=== PATIENT | female | born 1995 | race American Indian/Alaskan Native ===

== ENCOUNTER 2016-11-07 09:41 | Emergency (ER) | payer OTHER ==
[2016-11-07 09:59] VITALS: BP 117/55; PULSE 69; RESP 18; TEMP 98.3; O2SAT 100
--- NOTE | 2016-11-07 10:22 | ED PDOC ---
HPI: Psych/Substance Abuse Time Seen by Provider: 11/07/16 09:56 Chief Complaint (Nursing): Psychiatric Evaluation Chief Complaint (Provider): Psychiatric Evaluation History Per: Patient, Family (Mother) History/Exam Limitations: no limitations Onset/Duration Of Symptoms: Days (x 1) Current Symptoms Are (Timing): Still Present Associated Symptoms: Depression, Suicidal Thoughts, Suicidal Plan Additional Complaint(s): Violeta is a 21 y/o female who was brought to the ED by her mother for psychiatric evaluation. Patient told her mother she felt like killing herself, and has plan of cutting wrists. History of psychiatric medical concerns when she lived in [place] 5 years ago, but currently not on any medications and hasnt seen a psychiatrist here. Denies drug use and alcohol use. PMD: Tuan Suarez Past Medical History Reviewed: Historical Data, Nursing Documentation, Vital Signs Vital Signs: Last Vital Signs Temp 98.3 F 11/07/16 09:54 Pulse 69 11/07/16 09:54 Resp 18 11/07/16 09:54 BP 117/55 L 11/07/16 09:54 Pulse Ox 100 11/07/16 09:54 - Medical History PMH: Anxiety, Bipolar Disorder, Depression, Migraine - Surgical History Surgical History: No Surg Hx - Family History Family History: States: Unknown Family Hx - Social History Current smoker - smoking cessation education provided: No Alcohol: Social Drugs: Cannabis - Immunization History Hx Tetanus Toxoid Vaccination: No Hx Influenza Vaccination: No Hx Pneumococcal Vaccination: No - Home Medications Home Medications: Ambulatory Orders Medication Instructions Recorded No Known Home Med 06/19/15 - Allergies Allergies/Adverse Reactions: Allergies Allergy/AdvReac Type Severity Reaction Status Date / Time No Known Allergies Allergy Verified 11/07/16 09:54 Review of Systems ROS Statement: Except As Marked, All Systems Reviewed And Found Negative Psych: Positive for: Depression, Suicidal ideation (with suicidal plan of cutting wrists). Negative for: Other (drug or alcohol use) Physical Exam - Reviewed Nursing Documentation Reviewed: Yes Vital Signs Reviewed: Yes - Physical Exam Appears: Positive for: Non-toxic, No Acute Distress Head Exam: Positive for: ATRAUMATIC, NORMAL INSPECTION, NORMOCEPHALIC Skin: Positive for: Normal Color, Warm, Dry Eye Exam: Positive for: EOMI, Normal appearance, PERRL Neck: Positive for: Normal, Painless ROM, Supple Cardiovascular/Chest: Positive for: Regular Rate, Rhythm. Negative for: Murmur Respiratory: Positive for: Normal Breath Sounds. Negative for: Respiratory Distress Gastrointestinal/Abdominal: Positive for: Normal Exam, Soft. Negative for: Tenderness Back: Positive for: Normal Inspection. Negative for: Vertebral Tenderness Extremity: Positive for: Normal ROM, Capillary Refill (< 2 sec). Negative for: Pedal Edema, Deformity Neurologic/Psych: Positive for: Alert, Oriented - ECG O2 Sat by Pulse Oximetry: 100 (RA) Pulse Ox Interpretation: Normal Medical Decision Making Medical Decision Making: Time: 10:02 Initial Impression: Crisis Evaluation Initial Plan: --Urine test --Urine dipstick --Pending crisis evaluation Time: 13:16 Clinical Impression: Depression Upon provider reevaluation patient is medically stable, and requires no further treatment in the ED at this time. Patient will be discharged home. Counseling was provided and all questions were answered regarding diagnosis and need for follow up with PMD. There is agreement to discharge plan. Return if symptoms persist or worsen. Scribe Attestation: Documented by Nela Nava, acting as a scribe for Alix Leos MD Provider Scribe Attestation: All medical record entries made by the Scribe were at my direction and personally dictated by me. I have reviewed the chart and agree that the record accurately reflects my personal performance of the history, physical exam, medical decision making, and the department course for this patient. I have also personally directed, reviewed, and agree with the discharge instructions and disposition. Disposition - Clinical Impression Clinical Impression: Depression - Patient ED Disposition Is Patient to be Admitted: No Doctor Will See Patient In The: Office Counseled Patient/Family Regarding: Diagnosis, Need For Followup - Disposition Disposition: Routine/Home Disposition Time: 13:16 Condition: STABLE Additional Instructions: FOLLOW-UP WITH ADVISED. Instructions: Depression (ED) Forms: [employer] ([place])
== END 2016-11-07 13:16 | disposition home or self-care (01) ==
LOC: H.ER 09:41
DX: F33.8 Other recurrent depressive disorders (principal); F31.9 Bipolar disorder, unspecified; F41.9 Anxiety disorder, unspecified